=== PATIENT | male | born 1935 | race Caucasian/White ===

== ENCOUNTER 2017-01-30 09:32 | Emergency (ER) | payer MEDICARE, OTHER ==
--- NOTE | 2017-01-30 09:52 | EDM.PDOC ---
ED HPI GENERAL MEDICAL PROBLEM - General Chief Complaint: Chest Pain Stated Complaint: CHEST PAINS Time Seen by Provider: 01/30/17 09:45 Source of Information: Reports: Patient, Old Records History Limitations: Reports: No Limitations - History of Present Illness INITIAL COMMENTS - FREE TEXT/NARRATIVE: 81 yo male here with intermittent chest pain/pressure. Had been having the abdominal/chest pressure for a few days, now he would call it more pain this morning. Is actually asymptomatic now. Has not missed any of his meds. Has known CAD. BP usually runs 120-130 systolic. Has some current constipation. Onset: Gradual Onset Date: 01/30/17 Duration: Hour(s):, Intermittent, Waxing/Waning Location: Reports: Chest Quality: Reports: Pressure Severity: Moderate Improves with: Reports: None Worsens with: Reports: None, Other (Patient does not correlate the chest pain with activity.) Context: Reports: Other (Has known CAD) Associated Symptoms: Reports: Other (constipation). Denies: Diaphoresis, Fever/ Chills, Nausea/Vomiting, Shortness of Breath Treatments [employer]GER: Reports: Other (see below) (Took his usual meds only) - Related Data Allergies Allergy/AdvReac Type Severity Reaction Status Date / Time clopidogrel [From Plavix] Allergy Rash Verified 01/30/17 09:41 Home Meds: Home Meds Alpha Lipoic Acid 200 mg PO DAILY 07/31/14 [History] Ascorbic Acid [Vitamin C] 1,000 mg PO DAILY 07/31/14 [History] Aspirin [Children's Aspirin] 81 mg PO DAILY 07/31/14 [History] Chlorpheniramine Maleate 4 mg PO BID 07/31/14 [History] Clopidogrel [Plavix] 75 mg PO DAILY 07/31/14 [History] Echinacea Purpurea Extract [Echinacea] 125 mg PO DAILY 07/31/14 [History] Furosemide 20 mg PO DAILY 07/31/14 [History] Gluc 2KCl/Chondr/Shannan Hy/Hy Ac [Glucosamine & Chondroitin Cap] 2 each PO BID 08/10 [History] Hydrocodone/Acetaminophen [Hydrocodon-Acetaminophn 10-325] 1 tab PO Q4H PRN 08/10 [History] Ibuprofen 400 mg PO Q4HR PRN 07/31/14 [History] Losartan/Hydrochlorothiazide [Hyzaar 100-25] 1 tab PO DAILY 07/31/14 [History] Magnesium Oxide 400 mg PO DAILY 07/31/14 [History] Metoprolol Tartrate [Lopressor] 25 mg PO Q12HR 07/31/14 [History] Multivitamin [Multi-Vitamin Daily] 1 each PO DAILY 07/31/14 [History] [place]-3 Fatty Acids [[place]-3] 1,000 mg PO DAILY 07/31/14 [History] Spironolactone [Aldactone] 25 mg PO DAILY 07/31/14 [History] Triamcinolone Acetonide [Triamcinolone Acetonide 0.1% Crm] 15 gm TOP BID [History] Ubiquinol 100 mg PO DAILY 07/31/14 [History] Vitamin E 200 unit PO DAILY 07/31/14 [History] amLODIPine [Norvasc] 5 mg PO DAILY 07/31/14 [History] levOCARNitine [l-Carnitine] 500 mg PO DAILY 07/31/14 [History] Past Medical History HEENT History: Reports: Impaired Vision Cardiovascular History: Reports: Heart Failure, Heart Valve Replacement Other Cardiovascular History: systolic dysfunction Respiratory History: Reports: COPD - Infectious Disease History Infectious Disease History: Reports: Chicken Pox - Past Surgical History Cardiovascular Surgical History: Reports: Valve Replacement GI Surgical History: Reports: Colonoscopy Endocrine Surgical History: Reports: Parathyroidectomy Social & Family History - Tobacco Use Smoking Status *Q: Former Smoker Years of Tobacco use: 30 Used Tobacco, but Quit: Yes Month Tobacco Last Used: 2004 Second Hand Smoke Exposure: No - Alcohol Use Days Per Week of Alcohol Use: 0 - Recreational Drug Use Recreational Drug Use: No ED ROS GENERAL - Review of Systems Review Of Systems: See Below Constitutional: Reports: No Symptoms HEENT: Reports: No Symptoms Respiratory: Reports: No Symptoms Cardiovascular: Reports: Chest Pain GI/Abdominal: Reports: Constipation, Other (Some abdominal/chest pressure preceded today's chest pain by a couple days.). Denies: Abdominal Pain, Black Stool, Bloody Stool, Diarrhea, Hematemesis, Hematochezia, Nausea, Vomiting : Reports: No Symptoms Musculoskeletal: Reports: No Symptoms Skin: Reports: No Symptoms Neurological: Reports: No Symptoms Psychiatric: Reports: No Symptoms ED EXAM, GENERAL - Physical Exam Exam: See Below Exam Limited By: No Limitations General Appearance: Alert, WD/WN, No Apparent Distress Eye Exam: Bilateral Eye: Normal Inspection, Other (R upper eyelid obstructs vision by covering pupil in that eye.) Ears: Normal External Exam, Normal Canal, Hearing Grossly Normal Ear Exam: Bilateral Ear: Auricle Normal, Canal Normal Nose: Normal Inspection, Normal Mucosa, No Blood Throat/Mouth: Normal Inspection, Normal Lips, Normal Oropharynx, Normal Voice, No Airway Compromise Head: Atraumatic, Normocephalic Neck: Normal Inspection, Supple Respiratory/Chest: No Respiratory Distress, Lungs Clear, Normal Breath Sounds, No Accessory Muscle Use Cardiovascular: Regular Rate, Rhythm, No Edema GI/Abdominal: Normal Bowel Sounds, Soft, Non-Tender, No Distention Back Exam: Normal Inspection. No: CVA Tenderness (R), CVA Tenderness (L) Extremities: Normal Inspection, Normal Range of Motion, Non-Tender, Pedal Edema (Trace both ankles) Neurological: Alert, Oriented, CN II-XII Intact, Normal Cognition, No Motor/ Sensory Deficits Psychiatric: Normal Affect, Normal Mood Skin Exam: Warm, Dry, Intact, Normal Color, No Rash Lymphatic: No Adenopathy EKG INTERPRETATION EKG Date: 01/30/17 Time: 09:40 Rhythm: NSR Rate (Beats/Min): 69 [place]: Normal P-Wave: Present QRS: LBBB ST-T: Depressed (V5-V6) QT: Normal Comparison: Change From Previous EKG EKG Interpretation Comments: ST-T changes V5, V6 new since last EKG. LBBB not new. Course - Vital Signs Last Recorded V/S: Last Vital Signs Temp 36.6 C 01/30/17 09:53 Pulse 81 01/30/17 09:53 Resp 16 01/30/17 09:53 BP 139/80 01/30/17 09:55 Pulse Ox 97 01/30/17 09:53 - Orders/Labs/Meds Orders: Active Orders 24 hr Category Date Time Status Cardiac Monitoring [RC] .As Directed Care 01/30/17 09:42 Active EKG Documentation Completion [RC] ASDIRECTED Care 01/30/17 09:42 Active Sodium Chloride 0.9% [Saline Flush] Med 01/30/17 10:02 Active 10 ml FLUSH ASDIRECTED PRN Saline Lock Insert [OM.PC] Routine Oth 01/30/17 10:02 Ordered EKG 12 Lead [EK] Routine Ther 01/30/17 09:42 Ordered Medication Orders Sodium Chloride (Saline Flush) 10 ml FLUSH ASDIRECTED PRN PRN Reason: Keep Vein Open Last Admin: 01/30/17 10:17 Dose: 10 ml Labs: Laboratory Tests 01/30/17 01/30/17 Range/Units 10:17 10:17 WBC 4.2 L (4.5-11.0) K/uL RBC 4.31 (4.30-5.90) M/uL Hgb 11.7 L (12.0-15.0) g/dL Hct 36.9 L (40.0-54.0) % MCV 86 (80-98) fL MCH 27 (27-31) pg MCHC 32 (32-36) % Plt Count 192 (150-400) K/uL Sodium 139 L (140-148) mmol/L Potassium 4.1 (3.6-5.2) mmol/L Chloride 103 (100-108) mmol/L Carbon Dioxide 26 (21-32) mmol/L Anion Gap 14.1 H (5.0-14.0) mmol/L BUN 35 H (7-18) mg/dL Creatinine 1.6 H (0.8-1.3) mg/dL Est Cr Clr Drug Dosing 36.75 mL/min Estimated GFR (MDRD) 42 L (>60) Glucose 90 (74-106) mg/dL Calcium 8.3 L (8.5-10.1) mg/dL Troponin I 0.183 H* (0.000-0.056) ng/mL Meds: Medications Generic Name Dose Route Start Last Admin Trade Name Freq PRN Reason Stop Dose Admin Sodium Chloride 10 ml 01/30/17 10:02 01/30/17 10:17 Saline Flush FLUSH 10 ml ASDIRECTED PRN Administration Keep Vein Open Discontinued Medications Generic Name Dose Route Start Last Admin Trade Name Freq PRN Reason Stop Dose Admin Polyethylene Glycol 17 gm 01/30/17 10:01 01/30/17 10:16 Miralax PO 01/30/17 10:02 17 gm ONETIME ONE Administration Departure - Departure Time of Disposition: 12:00 Disposition: DC/Tfer to Acute Hospital 02 Reason for Transfer *Q: Other Condition: Fair Clinical Impression: Non-ST elevated myocardial infarction Referrals: Rachid Macias MD [Primary Care Provider] - Forms: ED Department Discharge - My Orders Last 24 Hours: My Active Orders 01/30/17 09:42 Cardiac Monitoring [RC] .As Directed EKG Documentation Completion [RC] ASDIRECTED EKG 12 Lead [EK] Routine 01/30/17 10:02 Sodium Chloride 0.9% [Saline Flush] 10 ml FLUSH ASDIRECTED PRN Saline Lock Insert [OM.PC] Routine - Assessment/Plan Last 24 Hours: My Active Orders 01/30/17 09:42 Cardiac Monitoring [RC] .As Directed EKG Documentation Completion [RC] ASDIRECTED EKG 12 Lead [EK] Routine 01/30/17 10:02 Sodium Chloride 0.9% [Saline Flush] 10 ml FLUSH ASDIRECTED PRN Saline Lock Insert [OM.PC] Routine
[2017-01-30 09:55] VITALS: BP 139/80
[2017-01-30] MEDS ORDERED: Polyethylene Glycol 3350 Powder 17 GM Packet PO ONE (10:01)
[2017-01-30] MEDS ORDERED: Sodium Chloride 0.9% 10 ML Syringe FLUSH PRN (10:02)
[2017-01-30] MEDS ORDERED: Heparin Sodium 5,000 Units/ML Vial IVPUSH ONE (10:54)
[2017-01-30] MEDS ORDERED: Heparin Sodium/D5W 25,000 UNITS/500 ML BAG IV SCH (11:00)
== END 2017-01-30 12:16 ==
LOC: JP.ED 09:34
DX: I21.4 Non-ST elevation (NSTEMI) myocardial infarction (principal); I50.9 Heart failure, unspecified; J44.9 Chronic obstructive pulmonary disease, unspecified; Z95.2 Presence of prosthetic heart valve; Z87.891 Personal history of nicotine dependence; Z79.82 Long term (current) use of aspirin; Z79.899 Other long term (current) drug therapy; Z88.8 Allergy status to other drugs, medicaments and biological substances
CPT/HCPCS: 36415; 80048; 84484; 85027; 93005; 96374; 99285; A9270; J1644; J7050; 93010; 99284

== ENCOUNTER 2018-07-04 08:40 | Inpatient (IN) | payer MEDICARE, OTHER ==
--- NOTE | 2018-07-04 09:38 | EDM.PDOC ---
ED HPI GENERAL MEDICAL PROBLEM - General Chief Complaint: Genitourinary Problem Stated Complaint: blood in urine Time Seen by Provider: 07/04/18 09:29 Source of Information: Reports: Patient History Limitations: Reports: No Limitations - History of Present Illness INITIAL COMMENTS - FREE TEXT/NARRATIVE: pt self caths twice daily because of urinary retention. His cathed him last nite and there was a fair amount of blood. She is very worried at this point. Onset: Other ( startesd last nite. ) Duration: Hour(s): Location: Reports: Other ( blood in the urine. ) Associated Symptoms: Reports: No Other Symptoms - Related Data Allergies Allergy/AdvReac Type Severity Reaction Status Date / Time clopidogrel [From Plavix] Allergy Rash Verified 01/30/17 09:41 Home Meds: Home Meds Alpha Lipoic Acid 200 mg PO DAILY 07/31/14 [History] Ascorbic Acid [Vitamin C] 1,000 mg PO DAILY 07/31/14 [History] Aspirin [Children's Aspirin] 81 mg PO DAILY 07/31/14 [History] Chlorpheniramine Maleate 4 mg PO BID 07/31/14 [History] Clopidogrel [Plavix] 75 mg PO DAILY 07/31/14 [History] Echinacea Purpurea Extract [Echinacea] 125 mg PO DAILY 07/31/14 [History] Furosemide 20 mg PO DAILY 07/31/14 [History] Gluc 2KCl/Chondr/Shannan Hy/Hy Ac [Glucosamine & Chondroitin Cap] 2 each PO BID 08/10 [History] Hydrocodone/Acetaminophen [Hydrocodon-Acetaminophn 10-325] 1 tab PO Q4H PRN 08/10 [History] Ibuprofen 400 mg PO Q4HR PRN 07/31/14 [History] Losartan/Hydrochlorothiazide [Hyzaar 100-25] 1 tab PO DAILY 07/31/14 [History] Magnesium Oxide 400 mg PO DAILY 07/31/14 [History] Metoprolol Tartrate [Lopressor] 25 mg PO Q12HR 07/31/14 [History] Multivitamin [Multi-Vitamin Daily] 1 each PO DAILY 07/31/14 [History] [place]-3 Fatty Acids [[place]-3] 1,000 mg PO DAILY 07/31/14 [History] Spironolactone [Aldactone] 25 mg PO DAILY 07/31/14 [History] Triamcinolone Acetonide [Triamcinolone Acetonide 0.1% Crm] 15 gm TOP BID [History] Ubiquinol 100 mg PO DAILY 07/31/14 [History] Vitamin E 200 unit PO DAILY 07/31/14 [History] amLODIPine [Norvasc] 5 mg PO DAILY 07/31/14 [History] levOCARNitine [l-Carnitine] 500 mg PO DAILY 07/31/14 [History] Past Medical History HEENT History: Reports: Impaired Vision Cardiovascular History: Reports: Heart Failure, Heart Valve Replacement Other Cardiovascular History: systolic dysfunction Respiratory History: Reports: COPD Gastrointestinal History: Reports: Diverticulosis Genitourinary History: Reports: Other (See Below) Other Genitourinary History: 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 Musculoskeletal History: Reports: Other (See Below) Other Musculoskeletal History: spinal stenosis - Infectious Disease History Infectious Disease History: Reports: Chicken Pox, Measles, Mumps - Past Surgical History Cardiovascular Surgical History: Reports: Valve Replacement GI Surgical History: Reports: Colonoscopy Male Surgical History: Reports: Other (See Below) Other Male Surgeries/Procedures: straight cath x 3 Endocrine Surgical History: Reports: Parathyroidectomy Social & Family History - Tobacco Use Smoking Status *Q: Former Smoker Used Tobacco, but Quit: Yes Month/Year Tobacco Last Used: many years - Caffeine Use Caffeine Use: Reports: Coffee, Soda - Recreational Drug Use Recreational Drug Use: No ED ROS GENERAL - Review of Systems Review Of Systems: See Below Constitutional: Reports: No Symptoms HEENT: Reports: No Symptoms Respiratory: Reports: No Symptoms Cardiovascular: Reports: No Symptoms Endocrine: Reports: No Symptoms GI/Abdominal: Reports: No Symptoms : Reports: Other (pt is having blood coming from the penis after being self cathed last nite. He is not voiding frquently and in only very small amounta. ) Musculoskeletal: Reports: No Symptoms ED EXAM, RENAL/ - Physical Exam Exam: See Below Text/Narrative:: pt arrived with a history of some blood coming from the penis after being self cathed last nite. He was bladder scanned and he had about [id number] cc of fluid in his bladder. Exam Limited By: No Limitations General Appearance: Alert, Anxious, Mild Distress Ears: Normal TMs Nose: Normal Inspection Throat/Mouth: Normal Inspection Head: Atraumatic Neck: Normal Inspection Respiratory/Chest: No Respiratory Distress Cardiovascular: Regular Rate, Rhythm GI/Abdominal: Other ( bladder feels very distended. ) (Male) Exam: Other (pt does have some bright red blood coming from the penis. ) Rectal (Males) Exam: Deferred Back Exam: Normal Inspection Extremities: Normal Inspection Neurological: Alert, Oriented, Normal Cognition Course - Vital Signs Last Recorded V/S: Last Vital Signs Temp 35.8 C 07/04/18 09:10 Pulse 75 07/04/18 09:10 Resp 12 07/04/18 09:10 BP 148/68 H 07/04/18 09:10 Pulse Ox 96 07/04/18 09:10 - Orders/Labs/Meds Orders: Active Orders 24 hr Category Date Time Status Bladder Scan [RC] ASDIRECTED Care 07/04/18 09:14 Active Labs: Laboratory Tests 07/04/18 07/04/18 07/04/18 Range/Units 08:45 10:00 10:00 WBC (4.5-11.0) K/uL RBC (4.30-5.90) M/uL Hgb (12.0-15.0) g/dL Hct (40.0-54.0) % MCV (80-98) fL MCH (27-31) pg MCHC (32-36) % Plt Count (150-400) K/uL Neut % (Auto) (36-66) % Lymph % (Auto) (24-44) % [place] % (Auto) (2-6) % Eos % (Auto) (2-4) % Baso % (Auto) (0-1) % PT 11.8 (9.5-12.0) sec INR 1.08 (0.80-1.20) APTT 28.8 (27.0-36.0) sec Sodium (140-148) mmol/L Potassium (3.6-5.2) mmol/L Chloride (100-108) mmol/L Carbon Dioxide (21-32) mmol/L Anion Gap (5.0-14.0) mmol/L BUN (7-18) mg/dL Creatinine (0.8-1.3) mg/dL Est Cr Clr Drug Dosing mL/min Estimated GFR (MDRD) (>60) Glucose (74-106) mg/dL Calcium (8.5-10.1) mg/dL Total Bilirubin (0.2-1.0) mg/dL AST (15-37) U/L ALT (12-78) U/L Alkaline Phosphatase (46-116) U/L Total Protein (6.4-8.2) g/dL Albumin (3.4-5.0) g/dL Globulin (2.3-3.5) g/dL Albumin/Globulin Ratio (1.2-2.2) Urine Color Red Urine Appearance Slightly cloudy Urine pH 6.0 (4.5-8.0) Ur Specific [place] 1.010 (1.008-1.030) Urine Protein Negative (NEGATIVE) mg/dL Urine Glucose (UA) Normal (NEGATIVE) mg/dL Urine Ketones Negative (NEGATIVE) mg/dL Urine Occult Blood Large (NEGATIVE) Urine Nitrite Negative (NEGAITVE) Urine Bilirubin Negative (NEGATIVE) Urine Urobilinogen Normal (NORMAL) mg/dL Ur Leukocyte Esterase Negative (NEGATIVE) Urine RBC Packed H (0-5) Urine WBC Not seen (0-5) Ur Epithelial Cells Not seen Amorphous Sediment Few Urine Bacteria Not seen Urine Mucus Not seen 07/04/18 07/04/18 Range/Units 10:26 10:26 WBC 4.1 L (4.5-11.0) K/uL RBC 3.52 L (4.30-5.90) M/uL Hgb 10.4 L (12.0-15.0) g/dL Hct 31.8 L (40.0-54.0) % MCV 90 (80-98) fL MCH 30 (27-31) pg MCHC 33 (32-36) % Plt Count 204 (150-400) K/uL Neut % (Auto) 54 (36-66) % Lymph % (Auto) 22 L (24-44) % [place] % (Auto) 16 H (2-6) % Eos % (Auto) 6 H (2-4) % Baso % (Auto) 2 H (0-1) % PT (9.5-12.0) sec INR (0.80-1.20) APTT (27.0-36.0) sec Sodium 135 L (140-148) mmol/L Potassium 4.6 (3.6-5.2) mmol/L Chloride 101 (100-108) mmol/L Carbon Dioxide 26 (21-32) mmol/L Anion Gap 12.6 (5.0-14.0) mmol/L BUN 36 H (7-18) mg/dL Creatinine 1.5 H (0.8-1.3) mg/dL Est Cr Clr Drug Dosing 37.85 mL/min Estimated GFR (MDRD) 45 L (>60) Glucose 92 (74-106) mg/dL Calcium 8.1 L (8.5-10.1) mg/dL Total Bilirubin 0.4 (0.2-1.0) mg/dL AST 24 (15-37) U/L ALT 21 (12-78) U/L Alkaline Phosphatase 64 (46-116) U/L Total Protein 6.6 (6.4-8.2) g/dL Albumin 3.2 L (3.4-5.0) g/dL Globulin 3.4 (2.3-3.5) g/dL Albumin/Globulin Ratio 0.9 L (1.2-2.2) Urine Color Urine Appearance Urine pH (4.5-8.0) Ur Specific [place] (1.008-1.030) Urine Protein (NEGATIVE) mg/dL Urine Glucose (UA) (NEGATIVE) mg/dL Urine Ketones (NEGATIVE) mg/dL Urine Occult Blood (NEGATIVE) Urine Nitrite (NEGAITVE) Urine Bilirubin (NEGATIVE) Urine Urobilinogen (NORMAL) mg/dL Ur Leukocyte Esterase (NEGATIVE) Urine RBC (0-5) Urine WBC (0-5) Ur Epithelial Cells Amorphous Sediment Urine Bacteria Urine Mucus Meds: Medications Discontinued Medications Generic Name Dose Route Start Last Admin Trade Name Ed PRN Reason Stop Dose Admin Lidocaine HCl 10 ml 07/04/18 09:43 07/04/18 11:13 Xylocaine 2% Jelly MUCMEM 07/04/18 09:44 Not Given ONETIME ONE - Re-Assessments/Exams Free Text/Narrative Re-Assessment/Exam: 07/04/18 12:24 pt had 1 bag of irrigation and the large clots have stopped and the urine is flowing normally. He does not have alot of bacteria in the urine. Departure - Departure Time of Disposition: 12:26 Disposition: Admitted As Inpatient 65 Condition: Fair Clinical Impression: Hematuria, Urinary retention - Discharge Information Referrals: PCP,None [Primary Care Provider] - Forms: ED Department Discharge Care Plan Goals: admit to Dr Matthew. - My Orders Last 24 Hours: My Active Orders 07/04/18 09:14 Bladder Scan [RC] ASDIRECTED - Assessment/Plan Last 24 Hours: My Active Orders 07/04/18 09:14 Bladder Scan [RC] ASDIRECTED
[2018-07-04] MEDS ORDERED: Lidocaine 2% Jelly 10 ML Urojet MUCMEM ONE (09:43)
--- NOTE | 2018-07-04 13:10 | PCM.HP ---
H&P History of Present Illness - General Date of Service: 07/04/18 Admit Problem/Dx: Admission Diagnosis/Problem Admission Diagnosis/Problem Hematuria Source of Information: Patient, Family, Provider History Limitations: Reports: No Limitations - History of Present Illness Initial Comments - Free Text/Narative: Aiden presented to the ER with hematuria. His performed a straight catheterization as usual last night. She did note some difficulty inserting the catheter which was unusual and she twisted it slightly. She had a return of approximately 100 mL of tyler-colored fluid. They went to bed as usual but he woke up about every 2 hours for the rest tonight with urinary urgency. He was only able to pass a small quantity of urine which appeared very red in color. He mentioned that to his this morning and she brought him in for evaluation. He continues to have some urinary urgency but has not been able to avoid his usual quantity. He does straight catheter twice daily because of a neurogenic bladder but is able to pass urine on his own normally. He has not had any fevers. He does not have any abdominal pain. Does not have any pain with urination. In the emergency room and irrigating catheter was placed and multiple clots were removed with the bladder irrigation. Irrigation was stopped and the urine became very red in color again told bladder irrigation will be resumed. He will be admitted for further management of hematuria probably secondary to a localized injury from the straight catheterization. - Related Data Allergies/Adverse Reactions: Allergies Allergy/AdvReac Type Severity Reaction Status Date / Time clopidogrel [From Plavix] Allergy Rash Verified 01/30/17 09:41 Home Medications: Home Meds Alpha Lipoic Acid 200 mg PO DAILY 07/31/14 [History] Ascorbic Acid [Vitamin C] 1,000 mg PO DAILY 07/31/14 [History] Aspirin [Children's Aspirin] 81 mg PO DAILY 07/31/14 [History] Chlorpheniramine Maleate 4 mg PO BID 07/31/14 [History] Clopidogrel [Plavix] 75 mg PO DAILY 07/31/14 [History] Echinacea Purpurea Extract [Echinacea] 125 mg PO DAILY 07/31/14 [History] Furosemide 20 mg PO DAILY 07/31/14 [History] Gluc 2KCl/Chondr/Shannan Hy/Hy Ac [Glucosamine & Chondroitin Cap] 2 each PO BID 08/10 [History] Hydrocodone/Acetaminophen [Hydrocodon-Acetaminophn 10-325] 1 tab PO Q4H PRN 08/10 [History] Ibuprofen 400 mg PO Q4HR PRN 07/31/14 [History] Losartan/Hydrochlorothiazide [Hyzaar 100-25] 1 tab PO DAILY 07/31/14 [History] Magnesium Oxide 400 mg PO DAILY 07/31/14 [History] Metoprolol Tartrate [Lopressor] 25 mg PO Q12HR 07/31/14 [History] Multivitamin [Multi-Vitamin Daily] 1 each PO DAILY 07/31/14 [History] [place]-3 Fatty Acids [[place]-3] 1,000 mg PO DAILY 07/31/14 [History] Spironolactone [Aldactone] 25 mg PO DAILY 07/31/14 [History] Triamcinolone Acetonide [Triamcinolone Acetonide 0.1% Crm] 15 gm TOP BID [History] Ubiquinol 100 mg PO DAILY 07/31/14 [History] Vitamin E 200 unit PO DAILY 07/31/14 [History] amLODIPine [Norvasc] 5 mg PO DAILY 07/31/14 [History] levOCARNitine [l-Carnitine] 500 mg PO DAILY 07/31/14 [History] Past Medical History HEENT History: Reports: Impaired Vision Cardiovascular History: Reports: Heart Failure, Heart Valve Replacement Other Cardiovascular History: systolic dysfunction Respiratory History: Reports: COPD Gastrointestinal History: Reports: Diverticulosis Genitourinary History: Reports: Other (See Below) Other Genitourinary History: 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 Musculoskeletal History: Reports: Other (See Below) Other Musculoskeletal History: spinal stenosis - Infectious Disease History Infectious Disease History: Reports: Chicken Pox, Measles, Mumps - Past Surgical History Cardiovascular Surgical History: Reports: Valve Replacement GI Surgical History: Reports: Colonoscopy Male Surgical History: Reports: Other (See Below) Other Male Surgeries/Procedures: straight cath x 3 Endocrine Surgical History: Reports: Parathyroidectomy Social & Family History - Family History Cardiac: Reports: [place] (father in his 70's) - Tobacco Use Smoking Status *Q: Former Smoker Used Tobacco, but Quit: Yes Month/Year Tobacco Last Used: many years - Caffeine Use Caffeine Use: Reports: Coffee, Soda - Alcohol Use Alcohol Use History: No - Recreational Drug Use Recreational Drug Use: No H&P Review of Systems - Review of Systems: Review Of Systems: See Below Free Text/Narrative: A complete 12 point review of systems was obtained. Pertinent positives and negatives are noted in the history of present illness. All other systems were reviewed and were negative except as noted. Exam - Exam Exam: See Below - Vital Signs Vital Signs: Last Vital Signs Temp 35.8 C 07/04/18 09:10 Pulse 75 07/04/18 09:10 Resp 12 07/04/18 09:10 BP 148/68 H 07/04/18 09:10 Pulse Ox 96 07/04/18 09:10 Weight: 77.111 kg - Exam Quality Assessment: No: Supplemental Oxygen General: Alert, Oriented, Cooperative. No: Mild Distress HEENT: Conjunctiva Clear, Mucosa Moist & [place]. No: Scleral Icterus Neck: Supple, Trachea Midline. No: Lymphadenopathy Lungs: Clear to Auscultation, Normal Respiratory Effort Cardiovascular: Regular Rate, Regular Rhythm, Systolic Murmur (soft KIM at apex) GI/Abdominal Exam: Normal Bowel Sounds, Soft, Non-Tender, No Distention, No Mass (Male) Exam: Other (hematuria noted in catheter ) Back Exam: Normal Inspection, Full Range of Motion Extremities: No Pedal Edema. No: Increased Warmth Skin: Warm, Dry Neuro Extensive - Mental Status: Alert, Oriented x3, Nl Response to Commands Neuro Extensive - Motor, Sensory, Reflexes: No: Dysarthria, Abnormal Motor, Tremor Psychiatric: Alert, Normal Affect - Patient Data Lab Results Last 24 hrs: Laboratory Results - last 24 hr 07/04/18 07/04/18 07/04/18 Range/Units 08:45 10:00 10:00 WBC (4.5-11.0) K/uL RBC (4.30-5.90) M/uL Hgb (12.0-15.0) g/dL Hct (40.0-54.0) % MCV (80-98) fL MCH (27-31) pg MCHC (32-36) % Plt Count (150-400) K/uL Neut % (Auto) (36-66) % Lymph % (Auto) (24-44) % [place] % (Auto) (2-6) % Eos % (Auto) (2-4) % Baso % (Auto) (0-1) % PT 11.8 (9.5-12.0) sec INR 1.08 (0.80-1.20) APTT 28.8 (27.0-36.0) sec Sodium (140-148) mmol/L Potassium (3.6-5.2) mmol/L Chloride (100-108) mmol/L Carbon Dioxide (21-32) mmol/L Anion Gap (5.0-14.0) mmol/L BUN (7-18) mg/dL Creatinine (0.8-1.3) mg/dL Est Cr Clr Drug Dosing mL/min Estimated GFR (MDRD) (>60) Glucose (74-106) mg/dL Calcium (8.5-10.1) mg/dL Total Bilirubin (0.2-1.0) mg/dL AST (15-37) U/L ALT (12-78) U/L Alkaline Phosphatase (46-116) U/L Total Protein (6.4-8.2) g/dL Albumin (3.4-5.0) g/dL Globulin (2.3-3.5) g/dL Albumin/Globulin Ratio (1.2-2.2) Urine Color Red Urine Appearance Slightly cloudy Urine pH 6.0 (4.5-8.0) Ur Specific [place] 1.010 (1.008-1.030) Urine Protein Negative (NEGATIVE) mg/dL Urine Glucose (UA) Normal (NEGATIVE) mg/dL Urine Ketones Negative (NEGATIVE) mg/dL Urine Occult Blood Large (NEGATIVE) Urine Nitrite Negative (NEGAITVE) Urine Bilirubin Negative (NEGATIVE) Urine Urobilinogen Normal (NORMAL) mg/dL Ur Leukocyte Esterase Negative (NEGATIVE) Urine RBC Packed H (0-5) Urine WBC Not seen (0-5) Ur Epithelial Cells Not seen Amorphous Sediment Few Urine Bacteria Not seen Urine Mucus Not seen 07/04/18 07/04/18 Range/Units 10:26 10:26 WBC 4.1 L (4.5-11.0) K/uL RBC 3.52 L (4.30-5.90) M/uL Hgb 10.4 L (12.0-15.0) g/dL Hct 31.8 L (40.0-54.0) % MCV 90 (80-98) fL MCH 30 (27-31) pg MCHC 33 (32-36) % Plt Count 204 (150-400) K/uL Neut % (Auto) 54 (36-66) % Lymph % (Auto) 22 L (24-44) % [place] % (Auto) 16 H (2-6) % Eos % (Auto) 6 H (2-4) % Baso % (Auto) 2 H (0-1) % PT (9.5-12.0) sec INR (0.80-1.20) APTT (27.0-36.0) sec Sodium 135 L (140-148) mmol/L Potassium 4.6 (3.6-5.2) mmol/L Chloride 101 (100-108) mmol/L Carbon Dioxide 26 (21-32) mmol/L Anion Gap 12.6 (5.0-14.0) mmol/L BUN 36 H (7-18) mg/dL Creatinine 1.5 H (0.8-1.3) mg/dL Est Cr Clr Drug Dosing 37.85 mL/min Estimated GFR (MDRD) 45 L (>60) Glucose 92 (74-106) mg/dL Calcium 8.1 L (8.5-10.1) mg/dL Total Bilirubin 0.4 (0.2-1.0) mg/dL AST 24 (15-37) U/L ALT 21 (12-78) U/L Alkaline Phosphatase 64 (46-116) U/L Total Protein 6.6 (6.4-8.2) g/dL Albumin 3.2 L (3.4-5.0) g/dL Globulin 3.4 (2.3-3.5) g/dL Albumin/Globulin Ratio 0.9 L (1.2-2.2) Urine Color Urine Appearance Urine pH (4.5-8.0) Ur Specific [place] (1.008-1.030) Urine Protein (NEGATIVE) mg/dL Urine Glucose (UA) (NEGATIVE) mg/dL Urine Ketones (NEGATIVE) mg/dL Urine Occult Blood (NEGATIVE) Urine Nitrite (NEGAITVE) Urine Bilirubin (NEGATIVE) Urine Urobilinogen (NORMAL) mg/dL Ur Leukocyte Esterase (NEGATIVE) Urine RBC (0-5) Urine WBC (0-5) Ur Epithelial Cells Amorphous Sediment Urine Bacteria Urine Mucus Result Diagrams: 07/04/18 10:26 07/04/18 10:26 *Q Meaningful Use (ADM) - VTE *Q VTE Pharmacological Contraindications *Q: Active Hemorrhage - VTE Risk Assess *Q Each Risk Factor Represents 1 Point: Congestive heart failure (CHF) Total Score 1 Point Risk Factors: 1 Each Risk Factor Represents 2 Points: None Total Score 2 Point Risk Factors: 0 Each Risk Factor Represents 3 Points: Age 75 Years or Greater Total Score 3 Point Risk Factors: 3 Each Risk Factor Represents 5 Points: None Total Score 5 Point Risk Factors: 0 Venous Thromboembolism Risk Factor Score *Q: 4 - Problem List (1) Hematuria SNOMED Code(s): 82129341 ICD Code: R31.9 - HEMATURIA, UNSPECIFIED Status: Acute Current Visit: Yes Qualifiers: Hematuria type: gross Qualified Code(s): R31.0 - Gross hematuria (2) Neurogenic bladder SNOMED Code(s): 994137256 ICD Code: N31.9 - NEUROMUSCULAR DYSFUNCTION OF BLADDER, UNSPECIFIED Status : Chronic Current Visit: Yes (3) BPH w urinary obs/LUTS SNOMED Code(s): 962993690 ICD Code: N40.1 - BENIGN PROSTATIC HYPERPLASIA WITH LOWER URINARY TRACT SYMP ; N13.8 - OTHER OBSTRUCTIVE AND REFLUX UROPATHY Status: Chronic Current Visit: Yes (4) CKD (chronic kidney disease), stage III SNOMED Code(s): 209714015 ICD Code: N18.3 - CHRONIC KIDNEY DISEASE, STAGE 3 (MODERATE) Status: Chronic Current Visit: Yes (5) CAD (coronary artery disease) SNOMED Code(s): 73149731 ICD Code: I25.10 - ATHSCL HEART DISEASE OF [place] CORONARY ARTERY W/O ANG PCTRS Status: Chronic Current Visit: Yes Qualifiers: Coronary Disease-Associated Artery/Lesion type: [place] artery [place] vs. transplanted heart: [place] heart Associated angina: without angina Qualified Code(s): I25.10 - Atherosclerotic heart disease of [place] coronary artery without angina pectoris Problem List Initiated/Reviewed/Updated: Yes Orders Last 24hrs: Active Orders 24 hr Category Date Time Status Patient Status Manage Transfer [TRANSFER] Routine ADT 07/04/18 13:01 Ordered Bladder Irrigation [RC] CONTINUOUS Care 07/04/18 13:01 Active Bladder Scan [RC] ASDIRECTED Care 07/04/18 09:14 Active CULTURE URINE [RM] Stat Lab 07/04/18 12:28 Received Resuscitation Status Routine Resus Stat 07/04/18 13:02 Ordered Assessment/Plan Comment:: ASSESSMENT AND PLAN - Gross hematuria - hematuria initially noted last night and has persisted. Significant hematuria with clots noted after the irrigating catheter was placed. I suspect there was an injury either in the urethra or prostate during catheterization last night. Fortunately has not on significant anticoagulant medications. Urine dip initially clear up with the bladder irrigation. 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 Normally uses a straight catheter twice per daily. Chronic kidney disease stage III - kidney function stable and at baseline. -Repeat labs in the morning Coronary artery disease - significant coronary history but no symptoms at this time. He has a history of heart failure which is well compensated. He has an ICD in place. -Continue medical management Maintenance issues - - DVT prophylaxis - mechanical with active hemorrhage - GI prophylaxis - not indicated - Nutrition - regular diet - Marcos catheter - three-way irrigating catheter placed in the emergency room with gross hematuria CODE STATUS - DNR/DNI Admission justification - This patient will be admitted for inpatient services and is medically appropriate meeting medical necessity for inpatient admission as outlined in my documentation. I reasonably expect the patient will require inpatient services that span a period time over 2 midnights. I reasonably expect this patient to be discharged or transferred within 96 hours [facility]. Disposition - I would anticipate discharge to home after the hospital stay Primary care physician - Dr Janet Matthew M.D.
[2018-07-04] MEDS ORDERED: Magnesium Hydroxide 400 MG/5 ML Susp 30 ML Cup PO PRN (14:51)
[2018-07-04] MEDS ORDERED: Polyethylene Glycol 3350 Powder 17 GM Packet PO PRN (14:51)
[2018-07-04] MEDS ORDERED: Ondansetron 4 MG Tab.DIS PO PRN (14:51)
[2018-07-04] MEDS ORDERED: Acetaminophen 325 MG Tab PO PRN (14:51)
[2018-07-04] MEDS: Carvedilol 12.5 MG Tab PO SCH (18:10)
[2018-07-04] MEDS: Fish Oil/Omega-3 Fatty Acids 1 Gm Cap PO SCH (20:56)
[2018-07-04] MEDS: atorvaSTATin 20 MG Tab PO SCH (20:56)
[2018-07-05] MEDS: Tiotropium Inhaler 18 MCG Inhalation Powder Cap Kit of 5 INH SCH (08:04)
[2018-07-05] MEDS: Carvedilol 12.5 MG Tab PO SCH ×2 (09:07→16:59)
[2018-07-05] MEDS: Aspirin 325 MG Tab.EC PO SCH (09:08)
[2018-07-05] MEDS: Spironolactone 25 MG Tab PO SCH (09:08)
[2018-07-05] MEDS: Polyethylene Glycol 3350 Powder 17 GM Packet PO SCH (09:10)
[2018-07-05] MEDS: Tamsulosin 0.4 MG Cap.ER PO SCH (09:10)
[2018-07-05] MEDS: Finasteride 5 MG Tab PO SCH (09:11)
[2018-07-05] MEDS: Fish Oil/Omega-3 Fatty Acids 1 Gm Cap PO SCH ×2 (09:27→20:19)
--- NOTE | 2018-07-05 09:34 | PCM.PN ---
- General Info Date of Service: 07/05/18 Subjective Update: There were no acute events overnight and the patient slept well. He has ongoing hematuria and continues to require continuous bladder irrigation. The number of clots seems to be decreasing. He does not have any abdominal pain. He has not had any fevers. Hemoglobin is down slightly compared to yesterday. Functional Status: Reports: Pain Controlled, Tolerating Diet - Review of Systems General: Denies: Fever Genitourinary: Reports: Hematuria - Patient Data Vitals - Most Recent: Last Vital Signs Temp 35.8 C 07/05/18 07:18 Pulse 63 07/05/18 09:07 Resp 16 07/05/18 07:18 BP 139/80 07/05/18 09:07 Pulse Ox 94 L 07/05/18 07:18 Weight - Most Recent: 75.115 kg I&O - Last 24 Hours: Intake & Output 07/04/18 07/05/18 07/05/18 22:59 06:59 14:59 Intake Total 1980 1500 1500 Output Total 1650 3450 Balance 330 -1950 1500 Lab Results Last 24 Hours: Laboratory Results - last 24 hr 07/04/18 07/04/18 07/04/18 Range/Units 08:45 10:00 10:00 WBC (4.5-11.0) K/uL RBC (4.30-5.90) M/uL Hgb (12.0-15.0) g/dL Hct (40.0-54.0) % MCV (80-98) fL MCH (27-31) pg MCHC (32-36) % Plt Count (150-400) K/uL Neut % (Auto) (36-66) % Lymph % (Auto) (24-44) % [place] % (Auto) (2-6) % Eos % (Auto) (2-4) % Baso % (Auto) (0-1) % PT 11.8 (9.5-12.0) sec INR 1.08 (0.80-1.20) APTT 28.8 (27.0-36.0) sec Sodium (140-148) mmol/L Potassium (3.6-5.2) mmol/L Chloride (100-108) mmol/L Carbon Dioxide (21-32) mmol/L Anion Gap (5.0-14.0) mmol/L BUN (7-18) mg/dL Creatinine (0.8-1.3) mg/dL Est Cr Clr Drug Dosing mL/min Estimated GFR (MDRD) (>60) Glucose (74-106) mg/dL Calcium (8.5-10.1) mg/dL Total Bilirubin (0.2-1.0) mg/dL AST (15-37) U/L ALT (12-78) U/L Alkaline Phosphatase (46-116) U/L Total Protein (6.4-8.2) g/dL Albumin (3.4-5.0) g/dL Globulin (2.3-3.5) g/dL Albumin/Globulin Ratio (1.2-2.2) Urine Color Red Urine Appearance Slightly cloudy Urine pH 6.0 (4.5-8.0) Ur Specific [place] 1.010 (1.008-1.030) Urine Protein Negative (NEGATIVE) mg/dL Urine Glucose (UA) Normal (NEGATIVE) mg/dL Urine Ketones Negative (NEGATIVE) mg/dL Urine Occult Blood Large (NEGATIVE) Urine Nitrite Negative (NEGAITVE) Urine Bilirubin Negative (NEGATIVE) Urine Urobilinogen Normal (NORMAL) mg/dL Ur Leukocyte Esterase Negative (NEGATIVE) Urine RBC Packed H (0-5) Urine WBC Not seen (0-5) Ur Epithelial Cells Not seen Amorphous Sediment Few Urine Bacteria Not seen Urine Mucus Not seen 07/04/18 07/04/18 07/05/18 Range/Units 10:26 10:26 05:00 WBC 4.1 L 5.0 (4.5-11.0) K/uL RBC 3.52 L 3.22 L (4.30-5.90) M/uL Hgb 10.4 L 9.5 L (12.0-15.0) g/dL Hct 31.8 L 29.3 L (40.0-54.0) % MCV 90 91 (80-98) fL MCH 30 30 (27-31) pg MCHC 33 32 (32-36) % Plt Count 204 197 (150-400) K/uL Neut % (Auto) 54 (36-66) % Lymph % (Auto) 22 L (24-44) % [place] % (Auto) 16 H (2-6) % Eos % (Auto) 6 H (2-4) % Baso % (Auto) 2 H (0-1) % PT (9.5-12.0) sec INR (0.80-1.20) APTT (27.0-36.0) sec Sodium 135 L (140-148) mmol/L Potassium 4.6 (3.6-5.2) mmol/L Chloride 101 (100-108) mmol/L Carbon Dioxide 26 (21-32) mmol/L Anion Gap 12.6 (5.0-14.0) mmol/L BUN 36 H (7-18) mg/dL Creatinine 1.5 H (0.8-1.3) mg/dL Est Cr Clr Drug Dosing 37.85 mL/min Estimated GFR (MDRD) 45 L (>60) Glucose 92 (74-106) mg/dL Calcium 8.1 L (8.5-10.1) mg/dL Total Bilirubin 0.4 (0.2-1.0) mg/dL AST 24 (15-37) U/L ALT 21 (12-78) U/L Alkaline Phosphatase 64 (46-116) U/L Total Protein 6.6 (6.4-8.2) g/dL Albumin 3.2 L (3.4-5.0) g/dL Globulin 3.4 (2.3-3.5) g/dL Albumin/Globulin Ratio 0.9 L (1.2-2.2) Urine Color Urine Appearance Urine pH (4.5-8.0) Ur Specific [place] (1.008-1.030) Urine Protein (NEGATIVE) mg/dL Urine Glucose (UA) (NEGATIVE) mg/dL Urine Ketones (NEGATIVE) mg/dL Urine Occult Blood (NEGATIVE) Urine Nitrite (NEGAITVE) Urine Bilirubin (NEGATIVE) Urine Urobilinogen (NORMAL) mg/dL Ur Leukocyte Esterase (NEGATIVE) Urine RBC (0-5) Urine WBC (0-5) Ur Epithelial Cells Amorphous Sediment Urine Bacteria Urine Mucus 07/05/18 Range/Units 05:00 WBC (4.5-11.0) K/uL RBC (4.30-5.90) M/uL Hgb (12.0-15.0) g/dL Hct (40.0-54.0) % MCV (80-98) fL MCH (27-31) pg MCHC (32-36) % Plt Count (150-400) K/uL Neut % (Auto) (36-66) % Lymph % (Auto) (24-44) % [place] % (Auto) (2-6) % Eos % (Auto) (2-4) % Baso % (Auto) (0-1) % PT (9.5-12.0) sec INR (0.80-1.20) APTT (27.0-36.0) sec Sodium 138 L (140-148) mmol/L Potassium 4.3 (3.6-5.2) mmol/L Chloride 104 (100-108) mmol/L Carbon Dioxide 26 (21-32) mmol/L Anion Gap 12.3 (5.0-14.0) mmol/L BUN 33 H (7-18) mg/dL Creatinine 1.4 H (0.8-1.3) mg/dL Est Cr Clr Drug Dosing 40.56 mL/min Estimated GFR (MDRD) 48 L (>60) Glucose 85 (74-106) mg/dL Calcium 7.9 L (8.5-10.1) mg/dL Total Bilirubin (0.2-1.0) mg/dL AST (15-37) U/L ALT (12-78) U/L Alkaline Phosphatase (46-116) U/L Total Protein (6.4-8.2) g/dL Albumin (3.4-5.0) g/dL Globulin (2.3-3.5) g/dL Albumin/Globulin Ratio (1.2-2.2) Urine Color Urine Appearance Urine pH (4.5-8.0) Ur Specific [place] (1.008-1.030) Urine Protein (NEGATIVE) mg/dL Urine Glucose (UA) (NEGATIVE) mg/dL Urine Ketones (NEGATIVE) mg/dL Urine Occult Blood (NEGATIVE) Urine Nitrite (NEGAITVE) Urine Bilirubin (NEGATIVE) Urine Urobilinogen (NORMAL) mg/dL Ur Leukocyte Esterase (NEGATIVE) Urine RBC (0-5) Urine WBC (0-5) Ur Epithelial Cells Amorphous Sediment Urine Bacteria Urine Mucus Fei Results Last 24 Hours: Microbiology 07/04/18 12:28 Urine Culture - Preliminary Urine, Bladder NO GROWTH AFTER 1 DAY Med Orders - Current: Current Medications Acetaminophen (Tylenol) 650 mg PO Q4H PRN PRN Reason: Pain (Mild 1-3)/fever Aspirin (Ecotrin) 325 mg PO DAILY [facility] Last Admin: 07/05/18 09:08 Dose: 325 mg Atorvastatin Calcium (Lipitor) 20 mg PO BEDTIME [facility] Last Admin: 07/04/18 20:56 Dose: 20 mg Carvedilol (Coreg) 12.5 mg PO BIDMEALS [facility] Last Admin: 07/05/18 09:07 Dose: 12.5 mg Finasteride (Proscar) 5 mg PO DAILY [facility] Last Admin: 07/05/18 09:11 Dose: 5 mg Fish Oil (Fish Oil) 1 gm PO BID [facility] Last Admin: 07/05/18 09:27 Dose: 1 gm Magnesium Hydroxide (Milk Of Magnesia) 30 ml PO Q12H PRN PRN Reason: Constipation [Glucosamine & (Chondroitin*Pom*) 2 each PO BID [facility] Last Admin: 07/04/18 20:57 Dose: Not Given (Ubiquinol [ Ubiquinol] 100 Mg)* Pom* 100 mg PO DAILY [facility] Ondansetron HCl (Zofran Odt) 4 mg PO Q6H PRN PRN Reason: Nausea able to take PO Polyethylene Glycol (Miralax) 17 gm PO DAILY PRN PRN Reason: Constipation Polyethylene Glycol (Miralax) 17 gm PO DAILY [facility] Last Admin: 07/05/18 09:10 Dose: 17 gm Spironolactone (Aldactone) 25 mg PO DAILY [facility] Last Admin: 07/05/18 09:08 Dose: 25 mg Tamsulosin HCl (Flomax) 0.4 mg PO DAILY [facility] Last Admin: 07/05/18 09:10 Dose: 0.4 mg Tiotropium [place] (Spiriva Handihaler) 18 mcg INH DAILY [facility] Last Admin: 07/05/18 08:04 Dose: 18 mcg Discontinued Medications Lidocaine HCl (Xylocaine 2% Jelly) 10 ml MUCMEM ONETIME ONE Stop: 07/04/18 09:44 Last Admin: 07/04/18 11:13 Dose: Not Given - Exam Quality Assessment: No: Supplemental Oxygen General: Alert, Oriented, Cooperative, No Acute Distress Lungs: Normal Respiratory Effort GI/Abdominal Exam: Soft, No Distention Extremities: No Pedal Edema Skin: Warm, Dry Psy/Mental Status: Alert, Normal Affect - Problem List & Annotations (1) Hematuria SNOMED Code(s): 09755962 Code(s): R31.9 - HEMATURIA, UNSPECIFIED Status: Acute Current Visit: Yes Qualifiers: Hematuria type: gross Qualified Code(s): R31.0 - Gross hematuria (2) Neurogenic bladder SNOMED Code(s): 857790521 Code(s): N31.9 - NEUROMUSCULAR DYSFUNCTION OF BLADDER, UNSPECIFIED Status: Chronic Current Visit: Yes (3) BPH w urinary obs/LUTS SNOMED Code(s): 134317245 Code(s): N40.1 - BENIGN PROSTATIC HYPERPLASIA WITH LOWER URINARY TRACT SYMP; N13.8 - OTHER OBSTRUCTIVE AND REFLUX UROPATHY Status: Chronic Current Visit : Yes (4) CKD (chronic kidney disease), stage III SNOMED Code(s): 120586023 Code(s): N18.3 - CHRONIC KIDNEY DISEASE, STAGE 3 (MODERATE) Status: Chronic Current Visit: Yes (5) CAD (coronary artery disease) SNOMED Code(s): 79085922 Code(s): I25.10 - ATHSCL HEART DISEASE OF [place] CORONARY ARTERY W/O ANG PCTRS Status: Chronic Current Visit: Yes Qualifiers: Coronary Disease-Associated Artery/Lesion type: [place] artery [place] vs. transplanted heart: [place] heart Associated angina: without angina Qualified Code(s): I25.10 - Atherosclerotic heart disease of [place] coronary artery without angina pectoris - Problem List Review Problem List Initiated/Reviewed/Updated: Yes - My Orders Last 24 Hours: My Active Orders 07/04/18 13:01 Bladder Irrigation [RC] CONTINUOUS 07/04/18 13:02 Resuscitation Status Routine 07/04/18 14:51 Patient Status [ADT] Routine Antiembolic Devices [RC] .Routine Intake and Output [RC] QSHIFT Notify Provider Vital Signs [RC] ASDIRECTED Oxygen Therapy [RC] PRN VTE/DVT Education [RC] Per Unit Routine Vital Signs [RC] Q4H Acetaminophen [Tylenol] 650 mg PO Q4H PRN Magnesium Hydroxide [Milk of Magnesia] 30 ml PO Q12H PRN Ondansetron [Zofran ODT] 4 mg PO Q6H PRN Polyethylene Glycol 3350 [MiraLAX] 17 gm PO DAILY PRN Antiembolic Hose [OM.PC] Per Unit Routine VTE Pharmacological Contraindications [AST] Per Unit Routine 07/04/18 17:00 Carvedilol [Coreg] 12.5 mg PO BIDMEALS 07/04/18 21:00 Fish Oil/[place]-3 Fatty Acids [Fish Oil] 1 gm PO BID Gluc 2KCl/Chondr/Shannan Hy/Hy Ac [Glucosamine & Chondroitin Cap] 2 each PO BID atorvaSTATin [Lipitor] 20 mg PO BEDTIME 07/04/18 Dinner Regular Diet [DIET] 07/05/18 09:00 Aspirin [Ecotrin] 325 mg PO DAILY Finasteride [Proscar] 5 mg PO DAILY Polyethylene Glycol 3350 [MiraLAX] 17 gm PO DAILY Spironolactone [Aldactone] 25 mg PO DAILY Tamsulosin [Flomax] 0.4 mg PO DAILY Tiotropium [Spiriva HandiHaler] 18 mcg INH DAILY Ubiquinol [Ubiquinol] 100 mg PO DAILY 07/06/18 05:00 BASIC METABOLIC PANEL,BMP [CHEM] Timed CBC W/O DIFF,HEMOGRAM [HEME] Timed (1) - Plan Plan:: ASSESSMENT AND PLAN - Gross hematuria - secondary to suspected urethral or prostate injury. hematuria seems to be lessening some. The quantity of clots seems to be decreasing. He is still dependent on the continuous bladder irrigation. No abdominal pain or fevers. Culture of the urine has been negative so far. 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 Normally uses a straight catheter twice per daily. Chronic kidney disease stage III - kidney function stable and at baseline. -Repeat labs in the morning Coronary artery disease - significant coronary history but no symptoms at this time. Heart failure remains well compensated. He has an ICD in place. -Continue medical management Maintenance issues - - DVT prophylaxis - mechanical with active hemorrhage - GI prophylaxis - not indicated - Nutrition - regular diet - Marcos catheter - three-way irrigating catheter placed in the emergency room with gross hematuria Disposition - I would anticipate discharge to home after the hospital stay Primary care physician - Dr Janet Matthew M.D.
[2018-07-05] MEDS: CHLORPHENIRAMINE 4 MG PO SCH (20:20)
[2018-07-05] MEDS: atorvaSTATin 20 MG Tab PO SCH (20:20)
[2018-07-06] MEDS: Fish Oil/Omega-3 Fatty Acids 1 Gm Cap PO SCH (08:41)
[2018-07-06] MEDS: Carvedilol 12.5 MG Tab PO SCH (08:42)
[2018-07-06] MEDS: Spironolactone 25 MG Tab PO SCH (08:46)
[2018-07-06] MEDS: Finasteride 5 MG Tab PO SCH (08:47)
[2018-07-06] MEDS: Aspirin 325 MG Tab.EC PO SCH (08:47)
[2018-07-06] MEDS: Tamsulosin 0.4 MG Cap.ER PO SCH (08:47)
[2018-07-06] MEDS: Tiotropium Inhaler 18 MCG Inhalation Powder Cap Kit of 5 INH SCH (08:48)
[2018-07-06] MEDS: Polyethylene Glycol 3350 Powder 17 GM Packet PO SCH (08:48)
[2018-07-06] MEDS: CHLORPHENIRAMINE 4 MG PO SCH (08:48)
[2018-07-06 11:10] VITALS: BP 151/81
--- NOTE | 2018-07-06 14:13 | PCM.DCSUM1 ---
Discharge Summary - Hospital Course Brief History: 83-year-old male with history of BPH, neurogenic bladder related to cauda equina syndrome who presented with hematuria after self- catheterization the night before presentation. He was admitted for gross hematuria with clots. Diagnosis: Stroke: No - Discharge Data Discharge Date: 07/06/18 Discharge Disposition: Home, [facility] Condition: Good - Discharge Diagnosis/Problem(s) (1) Hematuria SNOMED Code(s): 33494742 ICD Code: R31.9 - HEMATURIA, UNSPECIFIED Status: Acute Current Visit: Yes Qualifiers: Hematuria type: gross Qualified Code(s): R31.0 - Gross hematuria (2) Neurogenic bladder SNOMED Code(s): 822658354 ICD Code: N31.9 - NEUROMUSCULAR DYSFUNCTION OF BLADDER, UNSPECIFIED Status : Chronic Current Visit: Yes (3) BPH w urinary obs/LUTS SNOMED Code(s): 842283275 ICD Code: N40.1 - BENIGN PROSTATIC HYPERPLASIA WITH LOWER URINARY TRACT SYMP ; N13.8 - OTHER OBSTRUCTIVE AND REFLUX UROPATHY Status: Chronic Current Visit: Yes (4) CKD (chronic kidney disease), stage III SNOMED Code(s): 620111116 ICD Code: N18.3 - CHRONIC KIDNEY DISEASE, STAGE 3 (MODERATE) Status: Chronic Current Visit: Yes (5) CAD (coronary artery disease) SNOMED Code(s): 67070509 ICD Code: I25.10 - ATHSCL HEART DISEASE OF [place] CORONARY ARTERY W/O ANG PCTRS Status: Chronic Current Visit: Yes Qualifiers: Coronary Disease-Associated Artery/Lesion type: [place] artery [place] vs. transplanted heart: [place] heart Associated angina: without angina Qualified Code(s): I25.10 - Atherosclerotic heart disease of [place] coronary artery without angina pectoris - Patient Summary/Data Hospital Course: Aiden presented to the emergency room with hematuria. He had significant clots in his urine as well. Symptoms had started overnight following his usual evening self catheterization. Workup in the emergency room revealed gross hematuria with fair amount of clots. A three-way irrigating catheter was placed and continuous irrigation initiated. The urine did initially clear up but then the hematuria return fairly quickly. Laboratory studies were fairly unremarkable with stable stage III kidney disease and mild anemia which is his baseline. Because of the persistent hematuria he was admitted to the hospital for continuous bladder irrigation. Over the next couple of days the hematuria slowly improved. The clots went away fairly quickly after admission. His urine culture has not grown any bacteria. He has not had any fevers or abdominal pain. On the morning of discharge his hematuria was completely resolved. The catheter was removed. He has successfully voided and passed a clear urine. I believe he is safe for outpatient management at this time. The hematuria was likely related to urethral or prostate injury with the self-catheterization. He is going to avoid self-catheterization until tomorrow night. - Patient Instructions Diet: Regular Diet as Tolerated Activity: As Tolerated Showering/Bathing: May Shower Notify Provider of: Fever, Increased Pain, Nausea and/or Vomiting Other/Special Instructions: 1. You were in the hospital for management of hematuria (blood in your urine). The blood in your urine has resolved with continuous bladder irrigation. The catheter has been removed successfully. I would recommend that you avoid self-catheterization for the next 24 hours. You may resume self-catheterization tomorrow night. 2. Continue your usual home medications as previously prescribed. 3. Seek medical attention if you fever greater than 101, significant abdominal pain or return of hematuria. - Discharge Plan *PRESCRIPTION DRUG MONITORING PROGRAM REVIEWED*: Not Applicable *COPY OF PRESCRIPTION DRUG MONITORING REPORT IN PATIENT [place]: Not Applicable Home Medications: Home Meds Ascorbic Acid [Vitamin C] 1,000 mg PO BID 07/31/14 [History] Gluc 2KCl/Chondr/Shannan Hy/Hy Ac [Glucosamine & Chondroitin Cap] 2 each PO BID 08/10 [History] Multivitamin [Multi-Vitamin Daily] 1 each PO DAILY 07/31/14 [History] Mims-3 Fatty Acids [Mims-3] 1,000 mg PO BID 07/31/14 [History] Spironolactone [Aldactone] 25 mg PO DAILY 07/31/14 [History] Ubiquinol 100 mg PO DAILY 07/31/14 [History] Aspirin [Aspirin EC] 325 mg PO DAILY 07/04/18 [History] Coreg Sr 40 mg PO DAILY 07/04/18 [History] Finasteride 5 mg PO DAILY 07/04/18 [History] Polyethylene Glycol 3350 [MiraLAX] 17 gm PO DAILY 07/04/18 [History] Tamsulosin HCl 0.4 mg PO DAILY 07/04/18 [History] Tiotropium [Spiriva Handihaler] 18 mcg INH DAILY 07/04/18 [History] atorvaSTATin [Lipitor] 20 mg PO BEDTIME 07/04/18 [History] Chlorpheniramine Maleate 4 mg PO BID 07/05/18 [History] Glucosamine/D3/Boswellia Anastasiia [Osteo Bi-Flex Tablet] 2 tab PO BID 07/05/18 [ History] Oxygen Therapy Mode: Room Air Patient Handouts: Hematuria, Adult Referrals: Rachid Macias MD [Ordering Only Provider] - (f/u as scheduled ) - Discharge Summary/Plan Comment DC Time >30 min.: No - Patient Data Vitals - Most Recent: Last Vital Signs Temp 36.4 C 07/06/18 11:05 Pulse 66 07/06/18 11:05 Resp 18 07/06/18 11:05 BP 151/81 H 07/06/18 11:05 Pulse Ox 97 07/06/18 11:05 Weight - Most Recent: 75.115 kg I&O - Last 24 hours: Intake & Output 07/05/18 07/06/18 07/06/18 22:59 06:59 14:59 Intake Total 480 4360 Output Total 3400 1875 Balance 480 -3400 2485 Lab Results - Last 24 hrs: Laboratory Results - last 24 hr 07/06/18 07/06/18 Range/Units 05:27 05:27 WBC 5.1 (4.5-11.0) K/uL RBC 3.27 L (4.30-5.90) M/uL Hgb 9.7 L (12.0-15.0) g/dL Hct 30.2 L (40.0-54.0) % MCV 92 (80-98) fL MCH 30 (27-31) pg MCHC 32 (32-36) % Plt Count 195 (150-400) K/uL Sodium 135 L (140-148) mmol/L Potassium 4.3 (3.6-5.2) mmol/L Chloride 103 (100-108) mmol/L Carbon Dioxide 27 (21-32) mmol/L Anion Gap 9.3 (5.0-14.0) mmol/L BUN 35 H (7-18) mg/dL Creatinine 1.3 (0.8-1.3) mg/dL Est Cr Clr Drug Dosing 43.78 mL/min Estimated GFR (MDRD) 53 L (>60) Glucose 90 (74-106) mg/dL Calcium 7.9 L (8.5-10.1) mg/dL GABRIEL Results - Last 24 hrs: Microbiology 07/04/18 12:28 Urine Culture - Final Urine, Bladder NO GROWTH AFTER 2 DAYS Med Orders - Current: Current Medications Acetaminophen (Tylenol) 650 mg PO Q4H PRN PRN Reason: Pain (Mild 1-3)/fever Aspirin (Ecotrin) 325 mg PO DAILY [facility] [place] Last Admin: 07/06/18 08:47 Dose: 325 mg Atorvastatin Calcium (Lipitor) 20 mg PO BEDTIME [facility] [place] Last Admin: 07/05/18 20:20 Dose: 20 mg Carvedilol (Coreg) 12.5 mg PO BIDMEALS [facility] [place] Last Admin: 07/06/18 08:42 Dose: 12.5 mg Finasteride (Proscar) 5 mg PO DAILY [facility] [place] Last Admin: 07/06/18 08:47 Dose: 5 mg Fish Oil (Fish Oil) 1 gm PO BID [facility] [place] Last Admin: 07/06/18 08:41 Dose: 1 gm Magnesium Hydroxide (Milk Of Magnesia) 30 ml PO Q12H PRN PRN Reason: Constipation [Glucosamine & (Chondroitin*Pom*) 2 each PO BID [facility] [place] Last Admin: 07/06/18 08:44 Dose: 2 each (Ubiquinol [ Ubiquinol] 100 Mg)* Pom* 100 mg PO DAILY [facility] [place] Last Admin: 07/06/18 11:18 Dose: Not Given Ondansetron HCl (Zofran Odt) 4 mg PO Q6H PRN PRN Reason: Nausea able to take PO Chlorpheniramine 4mg (*Pom*) 1 each PO BID [facility] [place] Last Admin: 07/06/18 08:48 Dose: 1 each Polyethylene Glycol (Miralax) 17 gm PO DAILY PRN PRN Reason: Constipation Polyethylene Glycol (Miralax) 17 gm PO DAILY [facility] [place] Last Admin: 07/06/18 08:48 Dose: 17 gm Spironolactone (Aldactone) 25 mg PO DAILY [facility] [place] Last Admin: 07/06/18 08:46 Dose: 25 mg Tamsulosin HCl (Flomax) 0.4 mg PO DAILY [facility] [place] Last Admin: 07/06/18 08:47 Dose: 0.4 mg Tiotropium [place] (Spiriva Handihaler) 18 mcg INH DAILY [facility] [place] Last Admin: 07/06/18 08:48 Dose: 18 mcg Discontinued Medications Lidocaine HCl (Xylocaine 2% Jelly) 10 ml MUCMEM ONETIME ONE Stop: 07/04/18 09:44 Last Admin: 07/04/18 11:13 Dose: Not Given - Exam Quality Assessment: Denies: Supplemental Oxygen General: Reports: Alert, Oriented, Cooperative, No Acute Distress Lungs: Reports: Normal Respiratory Effort Cardiovascular: Reports: Regular Rate, Regular Rhythm GI/Abdominal Exam: No Distention Extremities: No Pedal Edema Psy/Mental Status: Reports: Alert, Normal Affect *Q Meaningful Use (DIS) - VTE *Q VTE Pharmacological Contraindications *Q: Active Hemorrhage
== END 2018-07-06 15:11 | disposition home health service (06) | DRG 696 ==
LOC: JP.ED 08:40 → JP.MS 13:01
PROVIDERS: ADMIT Internal Medicine; ATTEND Internal Medicine
PROC: 3E1K78Z Irrigation of Genitourinary Tract using Irrigating Substance, Via Natural or Artificial Opening (ICD-10-PCS; principal; 2018-07-04)
DX: R31.0 Gross hematuria (principal); N40.1 Benign prostatic hyperplasia with lower urinary tract symptoms; G83.4 Cauda equina syndrome; Z66 Do not resuscitate; X58.XXXA Exposure to other specified factors, initial encounter; Y93.F9 Activity, other caregiving; Y92.009 Unspecified place in unspecified non-institutional (private) residence as the place of occurrence of the external cause; N31.9 Neuromuscular dysfunction of bladder, unspecified; I50.9 Heart failure, unspecified; N18.3 Chronic kidney disease, stage 3 (moderate); J44.9 Chronic obstructive pulmonary disease, unspecified; Z95.2 Presence of prosthetic heart valve; Z87.891 Personal history of nicotine dependence; N13.8 Other obstructive and reflux uropathy; R33.8 Other retention of urine; I25.10 Atherosclerotic heart disease of native coronary artery without angina pectoris; Z95.810 Presence of automatic (implantable) cardiac defibrillator; Z79.82 Long term (current) use of aspirin; Z88.8 Allergy status to other drugs, medicaments and biological substances; D64.9 Anemia, unspecified
CPT/HCPCS: 36415; 51700; 51798; 80048; 80053; 81001; 85025; 85027; 85610; 85730; 87086; 94640; 99284; A9270-GY

== ENCOUNTER 2018-09-02 10:37 | Emergency (ER) | payer MEDICARE, OTHER ==
[2018-09-02] MEDS ORDERED: Sodium Chloride 0.9% 10 ML Syringe FLUSH PRN (11:39)
[2018-09-02] MEDS ORDERED: Lidocaine 2% Jelly 10 ML Urojet MUCMEM ONE (11:51)
--- NOTE | 2018-09-02 11:51 | EDM.PDOC ---
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 at bedside and helpful) - History of Present Illness INITIAL COMMENTS - FREE TEXT/NARRATIVE: Alert pleasant 83-year-old elderly gentleman presents with and female family member regarding hematuria. Patient has a history of known bladder cancer and had a bladder tumor resected on August 11 at [facility] by urology service. Patient was found to have bladder cancer he is unsure if it's the invasive cancer or not. The lesion was approximately 5 cm x 7 cm per patient and . Patient has been straight cathetering to ensure bladder emptying for the last 3 years. He straight catheter every morning and evening with the assistance of his . Patient states after his surgery and bladder cancer removal he's been doing well in her normal state of health. Wednesday morning he woke up and having difficulty with urination noted some dark brown discoloration to his urine with small dark clots which she was able to pass. Patient's complete straight cathetering morning and night and as stated that it's been more difficult to perform straight catheters after urologic procedure last month. Patient states his also had more discomfort with catheterization. Urine was then clear on . This morning he woke up and he was unable to urinate despite having significant urge to urinate. Patient was able to get a small amount of urine output and was bright red with blood and clots which were as long as a finger and fairly narrow. Patient denies any fever, chills or sweats he denies feeling acutely ill. Denies any new weakness or lightheadedness. Patient is noted he is slightly short of breath over the course of the last week. Patient states his president/[employer] live experiences just changed his blood pressure medication from 40 mg daily to 80 mg daily. They were concerned that the blood pressure medication may have caused his bladder bleeding as one of the very low likelihood side effects of hematuria. Patient did not take his Coreg this morning aft prescribed but to call his other medications including his aspirin. Onset: Sudden Onset Date: 08/31/18 - Related Data Allergies Allergy/AdvReac Type Severity Reaction Status Date / Time clopidogrel [From Plavix] Allergy Unknown Rash Verified 07/04/18 13:23 Home Meds: Home Meds Ascorbic Acid [Vitamin C] 1,000 mg PO BID 07/31/14 [History] Gluc 2KCl/Chondr/Shannan Hy/Hy Ac [Glucosamine & Chondroitin Cap] 2 each PO BID 08/10 [History] Multivitamin [Multi-Vitamin Daily] 1 each PO DAILY 07/31/14 [History] [place]-3 Fatty Acids [[place]-3] 1,000 mg PO BID 07/31/14 [History] Spironolactone [Aldactone] 25 mg PO DAILY 07/31/14 [History] Ubiquinol 100 mg PO DAILY 07/31/14 [History] Aspirin [Aspirin EC] 325 mg PO DAILY 07/04/18 [History] Coreg Sr 80 mg PO DAILY 07/04/18 [History] Finasteride 5 mg PO DAILY 07/04/18 [History] Polyethylene Glycol 3350 [MiraLAX] 17 gm PO DAILY 07/04/18 [History] Tamsulosin HCl 0.4 mg PO DAILY 07/04/18 [History] Tiotropium [Spiriva Handihaler] 18 mcg INH DAILY 07/04/18 [History] atorvaSTATin [Lipitor] 20 mg PO BEDTIME 07/04/18 [History] Chlorpheniramine Maleate 4 mg PO BID 07/05/18 [History] Glucosamine/D3/Boswellia Anastasiia [Osteo Bi-Flex Tablet] 2 tab PO BID 07/05/18 [ History] Past Medical History HEENT History: Reports: Impaired Vision Other HEENT History: Color Blind Cardiovascular History: Reports: Heart Failure, Heart Valve Replacement, Other ( See Below) Other Cardiovascular History: systolic dysfunction. 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, Bladder CA with tumor resection completed July 2018 at [facility] Musculoskeletal History: Reports: Other (See Below) Other Musculoskeletal History: spinal stenosis Oncologic (Cancer) History: Reports: Bladder Other Oncologic History: July 2018 - Infectious Disease History Infectious Disease History: Reports: Chicken Pox, Measles, Mumps - Past Surgical History HEENT Surgical History: Reports: None Cardiovascular Surgical History: Reports: Valve Replacement Respiratory Surgical History: Reports: None GI Surgical History: Reports: Colonoscopy Male Surgical History: Reports: Other (See Below) Other Male Surgeries/Procedures: straight cath x 3 Endocrine Surgical History: Reports: Parathyroidectomy Musculoskeletal Surgical History: Reports: Other (See Below) Other Musculoskeletal Surgeries/Procedures:: loosened up nerves in spine and removed some of back bone for spinal stenois Dermatological Surgical History: Reports: None Social & Family History - Family History Family Medical History: Noncontributory Cardiac: Reports: NC - Tobacco Use Smoking Status *Q: Never Smoker - Caffeine Use Caffeine Use: Reports: Coffee - Recreational Drug Use Recreational Drug Use: No ED ROS GENERAL - Review of Systems Review Of Systems: ROS reveals no pertinent complaints other than HPI. Respiratory: Reports: Shortness of Breath Cardiovascular: Reports: No Symptoms, Blood Pressure Problem, Dyspnea on Exertion, Palpitations (due to known PVCs). Denies: Chest Pain, Edema, Lightheadedness, Orthopnea, Syncope : Reports: Flank Pain (left, not necessary new, worse or different that typical ) ED EXAM, RENAL/ - Physical Exam Exam: See Below Exam Limited By: No Limitations General Appearance: Alert, WD/WN, No Apparent Distress, Thin (fraily and elderly in appearance) Eye Exam: Bilateral Eye: EOMI, Normal Inspection Ears: Normal External Exam, Hearing Loss Nose: Normal Inspection, No Blood Throat/Mouth: Normal Lips Head: Atraumatic Neck: Normal Inspection, Non-Tender, Full Range of Motion (per baseline), Limited Range of Motion (due to age no pain) Respiratory/Chest: No Respiratory Distress, Lungs Clear, Normal Breath Sounds, No Accessory Muscle Use, Chest Non-Tender Cardiovascular: Normal Peripheral Pulses, No Edema, Systolic Murmur. No: JVD, Tachycardia GI/Abdominal: Normal Bowel Sounds, Soft, Non-Tender, No Distention, No Mass. No : Distended, Guarding, Rigid, Rebound Rectal (Males) Exam: Deferred Back Exam: Normal Inspection, CVA Tenderness (L). No: CVA Tenderness (R) Extremities: Normal Inspection, Normal Range of Motion, No Pedal Edema, Normal Capillary Refill Neurological: Alert, Oriented, CN II-XII Intact, Normal Cognition, Normal Reflexes, No Motor/Sensory Deficits, Abnormal Gait (at baseline due to age) Psychiatric: Normal Affect, Normal Mood Skin Exam: Warm, Dry, Intact, Normal Color, No Rash Lymphatic: No Adenopathy EKG INTERPRETATION EKG Date: 09/02/18 Time: 12:55 Rhythm: Other (atrial sensed paced rhythm) [place]: Other (ventricular paced rhythm) P-Wave: Absent QRS: Other (ventricular paced rhythm) Comparison: Change From Previous EKG (January 2017: New pacemaker and improved SC interval) Course - Vital Signs Last Recorded V/S: Last Vital Signs Temp 36.1 C 09/02/18 11:11 Pulse 61 09/02/18 13:21 Resp 18 09/02/18 11:11 BP 175/83 H 09/02/18 13:21 Pulse Ox 96 09/02/18 13:21 - Orders/Labs/Meds Orders: Active Orders 24 hr Category Date Time Status Bladder Irrigation [RC] BID Care 09/02/18 11:39 Active Bladder Scan [RC] ASDIRECTED Care 09/02/18 11:39 Active EKG Documentation Completion [RC] ASDIRECTED Care 09/02/18 11:40 Active Park Catheter Insertion [Insert Urinary Catheter] [OM. Care 09/02/18 11:45 Ordered PC] Q24H Peripheral IV Care [RC] . DIRECTED Care 09/02/18 11:40 Active Urinary Catheter Assessment [RC] ASDIRECTED Care 09/02/18 11:42 Active Sodium Chloride 0.9% [Saline Flush] Med 09/02/18 11:39 Active 10 ml FLUSH ASDIRECTED PRN Peripheral IV Insertion Adult [OM.PC] Urgent Oth 09/02/18 11:39 Ordered EKG 12 Lead [EK] Urgent Ther 09/02/18 11:39 Ordered Medication Orders Sodium Chloride (Saline Flush) 10 ml FLUSH ASDIRECTED PRN PRN Reason: Keep Vein Open Labs: Laboratory Tests 09/02/18 09/02/18 09/02/18 Range/Units 11:57 11:57 11:57 WBC 4.7 (4.5-11.0) K/uL RBC 3.48 L (4.30-5.90) M/uL Hgb 10.7 L (12.0-15.0) g/dL Hct 32.3 L (40.0-54.0) % MCV 93 (80-98) fL MCH 31 (27-31) pg MCHC 33 (32-36) % Plt Count 188 (150-400) K/uL Neut % (Auto) 64 (36-66) % Lymph % (Auto) 17 L (24-44) % [place] % (Auto) 14 H (2-6) % Eos % (Auto) 4 (2-4) % Baso % (Auto) 1 (0-1) % PT 11.1 (9.5-12.0) sec INR 1.01 (0.80-1.20) APTT 28.1 (27.0-36.0) sec Sodium 134 L (140-148) mmol/L Potassium 4.6 (3.6-5.2) mmol/L Chloride 100 (100-108) mmol/L Carbon Dioxide 25 (21-32) mmol/L Anion Gap 13.6 (5.0-14.0) mmol/L BUN 42 H (7-18) mg/dL Creatinine 1.6 H (0.8-1.3) mg/dL Est Cr Clr Drug Dosing 35.49 mL/min Estimated GFR (MDRD) 41 L (>60) Glucose 100 (74-106) mg/dL Calcium 8.4 L (8.5-10.1) mg/dL Total Bilirubin 0.3 (0.2-1.0) mg/dL AST 23 (15-37) U/L ALT 21 (12-78) U/L Alkaline Phosphatase 63 (46-116) U/L Total Protein 6.5 (6.4-8.2) g/dL Albumin 3.2 L (3.4-5.0) g/dL Globulin 3.3 (2.3-3.5) g/dL Albumin/Globulin Ratio 1.0 L (1.2-2.2) Urine Color Urine Appearance Urine pH (4.5-8.0) Ur Specific [place] (1.008-1.030) Urine Protein (NEGATIVE) mg/dL Urine Glucose (UA) (NEGATIVE) mg/dL Urine Ketones (NEGATIVE) mg/dL Urine Occult Blood (NEGATIVE) Urine Nitrite (NEGAITVE) Urine Bilirubin (NEGATIVE) Urine Urobilinogen (NORMAL) mg/dL Ur Leukocyte Esterase (NEGATIVE) Urine RBC (0-5) Urine WBC (0-5) Ur Epithelial Cells Amorphous Sediment Urine Bacteria Urine Mucus 09/02/18 Range/Units 12:17 WBC (4.5-11.0) K/uL RBC (4.30-5.90) M/uL Hgb (12.0-15.0) g/dL Hct (40.0-54.0) % MCV (80-98) fL MCH (27-31) pg MCHC (32-36) % Plt Count (150-400) K/uL Neut % (Auto) (36-66) % Lymph % (Auto) (24-44) % [place] % (Auto) (2-6) % Eos % (Auto) (2-4) % Baso % (Auto) (0-1) % PT (9.5-12.0) sec INR (0.80-1.20) APTT (27.0-36.0) sec Sodium (140-148) mmol/L Potassium (3.6-5.2) mmol/L Chloride (100-108) mmol/L Carbon Dioxide (21-32) mmol/L Anion Gap (5.0-14.0) mmol/L BUN (7-18) mg/dL Creatinine (0.8-1.3) mg/dL Est Cr Clr Drug Dosing mL/min Estimated GFR (MDRD) (>60) Glucose (74-106) mg/dL Calcium (8.5-10.1) mg/dL Total Bilirubin (0.2-1.0) mg/dL AST (15-37) U/L ALT (12-78) U/L Alkaline Phosphatase (46-116) U/L Total Protein (6.4-8.2) g/dL Albumin (3.4-5.0) g/dL Globulin (2.3-3.5) g/dL Albumin/Globulin Ratio (1.2-2.2) Urine Color Red Urine Appearance Turbid Urine pH 6.5 (4.5-8.0) Ur Specific [place] 1.015 (1.008-1.030) Urine Protein 500 H (NEGATIVE) mg/dL Urine Glucose (UA) Normal (NEGATIVE) mg/dL Urine Ketones Negative (NEGATIVE) mg/dL Urine Occult Blood Large (NEGATIVE) Urine Nitrite Negative (NEGAITVE) Urine Bilirubin Negative (NEGATIVE) Urine Urobilinogen Normal (NORMAL) mg/dL Ur Leukocyte Esterase Small (NEGATIVE) Urine RBC Packed H (0-5) Urine WBC 5-10 H (0-5) Ur Epithelial Cells Not seen Amorphous Sediment Not seen Urine Bacteria Few Urine Mucus Not seen Meds: Medications Generic Name Dose Route Start Last Admin Trade Name Freq PRN Reason Stop Dose Admin Sodium Chloride 10 ml 09/02/18 11:39 Saline Flush FLUSH ASDIRECTED PRN Keep Vein Open Discontinued Medications Generic Name Dose Route Start Last Admin Trade Name Freq PRN Reason Stop Dose Admin Lidocaine HCl 10 ml 09/02/18 11:51 09/02/18 12:12 Xylocaine 2% Jelly MUCMEM 09/02/18 11:52 10 ml ONETIME ONE Administration - Radiology Interpretation Free Text/Narrative:: Spoke with facility maintenance technician regarding complete renal Ultrasound. Right kidney: No hydronephrosis. Normal blood flow noted. Renal cyst noted. No acute concerning findings. Left Kidney: No obviosu acute concerns but difficulty to assess due to overlying bowel gas. Bladder: Non distended. Park balloon and catheter in placed. No pulsatile bleeding or masses noted. - Re-Assessments/Exams Free Text/Narrative Re-Assessment/Exam: Repeat evaluation completed. Patient's symptoms are much improved. Bladder irrigation was completed after 1 hour. Urinalysis appears clear. Bladder patient was discontinued. Park bag was emptied will monitor patient for 1 hour to evaluate for continued hematuria. Bleeding seems to have resolved. Laboratory studies do not show any significant acute changes. Hemoglobin 10.7. Hematocrit is a little bit low which could indicate early blood loss anemia not to a concerning level. is concerned about transfer to [place] for evaluation with the urologist. She asked about staying here in the hospital or [facility]. Unfortunately [facility] does not have urologist available for inpatient care at this point in time. Urine now appearing to be clear patient will likely be discharged with Park catheter bag and follow-up with urology early next week for repeat evaluation. 09/02/18 13:49 Free Text/Narrative Re-Assessment/Exam: Small amount of blood noted in urine +3-4 on Hematuria grading scale. Shared decision making completed regarding risks and benefits of discharge home with Aprk catheter in place vs transfer to [place] at this point in time. I feel the patient is safe to be discharged home with close follow-up primary care provider or urologist early next week. Signs and symptoms and urinary findings that would warrant return to ER were discussed with and patient. They're in agreement with discharge plan at this point in time. 09/02/18 15:13 Departure - Departure Time of Disposition: 15:17 Disposition: Home, Self-Care 01 Condition: Fair Clinical Impression: Retention of urine, Acquired stenosis of urethral meatus, Bladder cancer Hematuria Qualifiers: Hematuria type: gross Qualified Code(s): R31.0 - Gross hematuria - Discharge Information Instructions: Hematuria, Adult, Acute Urinary Retention, Male, Indwelling Urinary Catheter Care, Adult Referrals: Rachid Macias MD [Primary Care Provider] - Forms: ED Department Discharge Additional Instructions: [place] 1. LEAVE PARK CATHETER IN PLACE UNTIL SEEN BY UROLOGY or PCP. 2. CALL PCP/UROLOGY CLINIC TODAY FOR APPOINTMENT AND FURTHER EVALUATION EARLY NEXT WEEK 3. TYLENOL (ACETAMINOPHEN) NEEDED FOR MILD PAIN. 4. CONTINUE CURRENT MEDICATIONS PRESCRIBED INCLUDING BLOOD PRESSURE MEDICATION. 5. RETURN TO ER IF URINE APPEARS TO LOOK LIKE BLOOD WITH CLOTTING, SYMPTOMS OF LIGHTHEADEDNESS, WEAKNESS, PALE AND UNWELL DUE TO AMOUNT OF BLEEDING OR PLUGGED PARK CATHETER OVER THE WEEKEND. 6 IF RETURN TO ER, REPEAT BLOOD TESTS AND BLADDER IRRIGATION WITH POSSIBLE TRANSFER TO [facility] FOR INPATIENT UROLOGY CARE. Hematuria (Blood in Urine) What is hematuria? Hematuria means blood in the urine. Microscopic hematuria means that the blood is seen only when the urine is examined under a microscope. Gross hematuria means that there is enough blood in the urine to be seen without a microscope. It causes the urine to look pink, red, or sometimes brown. Certain kinds of foods, such as beets or blackberries, may give the urine a reddish tint. This should last only for a day or so after eating these foods. A few medicines may also turn the urine reddish. If you have started a new medicine and notice a color change in your urine, call your pharmacist to see if that is normal. If the redness persists and cannot be explained by food or medicine, consult your healthcare provider promptly. How does it occur? Hematuria is a sign that something is causing bleeding in the urinary tract. The urinary tract includes the kidneys, the ureters (tubes that carry urine from the kidneys to the bladder), the bladder, and the urethra (tube that carries urine from the bladder out of the body). Some common causes of blood in the urine are: urinary tract (bladder) infection strenuous exercise kidney disease a stone in your bladder or kidney an inherited disease such as sickle cell anemia or systemic lupus erythematosus medicines such as blood thinners, including heparin (Calciparine, Liquaemin) , warfarin (Coumadin), or aspirin-type medicines; penicillins; sulfa-containing drugs; cyclophosphamide (Cytoxan) a prostate infection injury to any part of the urinary tract (for example, falling off a bike might bruise your kidney) a tumor in your urinary tract. How is it diagnosed? Urine that has blood in it may appear pink, bright red, or sometimes brown. If you have blood in your urine, your healthcare provider will ask about other symptoms and examine you. If the cause is obvious, your healthcare provider will treat you. If the cause isn't clear, you may need to have more tests such as: urine tests blood tests ultrasound scan of your bladder and kidneys intravenous pyelogram (an X-ray of the urinary tract) cystoscopy (a procedure that allows your provider to look at the urinary tract with a slim, flexible, lighted tube inserted through the urethra). How is it treated? The treatment of hematuria depends on its cause. How long do the effects last? How long hematuria lasts depends on its cause. For example, hematuria related to strenuous exercise usually goes away within 1 or 2 days after the exercise. Hematuria from a urinary tract infection will end when the infection is cured. Other causes might take longer to clear up. What can I do to help prevent hematuria? Prevention of hematuria depends on the cause. Ask your healthcare provider what you can do to prevent it. Indwelling Catheter Care What is an indwelling catheter? An indwelling urinary catheter is a tube that drains urine from the bladder into a bag. The tube is placed into the urethra (the part of the body that drains the bladder) and up into the bladder. The most common indwelling catheter is called a Park catheter. It is a tube with a balloon on one end and a drainage outlet on the other. The balloon end is inserted into the bladder and the balloon is inflated with sterile water to keep the catheter in the bladder. An indwelling catheter is used when you can't urinate normally. This may happen with some medical conditions such as prostate enlargement or after surgery on the pelvis or urinary tract. In these cases catheters are usually needed for only a few days or weeks, depending on your situation. Another reason you might need a catheter is incontinence, which means you can't control your urine. If contact with uncontrolled urine has caused breakdown in the skin, use of a catheter can help prevent more irritation or injury. How do I care for am indwelling catheter? When you have an indwelling catheter, you or someone caring for you needs to: Make sure urine is flowing into the catheter. Check for signs of skin irritation or infection. Make sure that the urine collection bag is always below the level of the bladder. The steps for good catheter care are: 1. Check the tubing to make sure it is in good condition and does not have any kinks. 2. Make sure the bag is being kept below the level of the bladder whether you are sitting, lying, or walking. This will help prevent infection. After urine passes through the catheter into the collection bag, it can become infected. The bag must be lower than the bladder so the urine can't flow back into the bladder and infect the urinary tract. 3. If the bag is attached to the thigh, check that the straps are not too tight or irritating. 4. Inspect the area where the catheter goes into the body (the urethra) to look for redness, raw areas, swelling, cracks in the skin, or drainage. 5. Gently clean all around the area where the catheter enters the body. Also clean the top several inches of the catheter. Use the antibacterial soap or solution recommended by your healthcare provider. 6. If you notice any of the following problems, report them to the healthcare provider according to the instructions you were given: Too little urine is being collected. Normally adults make 1 to 2 quarts (or liters) of clear, yellow urine each day. The catheter does not seem to be working right. You see signs of irritation or infection of the skin. Urine is leaking around the catheter or the catheter is accidentally pulled out. If the amount of urine draining into the bag is less than normal, there are several possible reasons, including: You are drinking less fluid. Your drainage system is blocked. You are not correctly measuring the amount of urine collected in the bag. Your kidneys are not functioning properly. What are the complications of indwelling catheters? The area where the catheter enters the body may become irritated and raw. It may become infected. In women the tube enters the urethra near the opening of the vagina. The opening of the urethra and the skin around the vagina can become red and raw from the rubbing of the tube. In men the end of the penis can become red, swollen, and sore from the catheter. If a man is uncircumcised, the foreskin can become irritated. Indwelling catheters can cause urinary tract infections. If you have a catheter and you develop 2 or more of the following symptoms, you should see your healthcare provider because you may have a urinary tract infection: fever shaking chills sweats lower abdominal pain back pain pain around the urethra cloudy, bad-smelling urine. Catheters may injure the urethra. For example, the urethra could be injured from tugging on the catheter tubing or bag. You may see a very small amount of blood making the urine look red or pink in the catheter if there has been a slight injury to the urethra. If this goes away quickly and there are no other symptoms, it is usually safe just to watch to make sure it doesn't happen again. However, if there continues to be blood in the urine inside the tubing for an hour or more, contact your healthcare provider. These instructions are intended to support the instructions from your healthcare provider and should not be used in place of those instructions. Developed by [facility] - My Orders Last 24 Hours: My Active Orders 09/02/18 11:39 Bladder Irrigation [RC] BID Bladder Scan [RC] ASDIRECTED Sodium Chloride 0.9% [Saline Flush] 10 ml FLUSH ASDIRECTED PRN Peripheral IV Insertion Adult [OM.PC] Urgent EKG 12 Lead [EK] Urgent 09/02/18 11:40 EKG Documentation Completion [RC] ASDIRECTED Peripheral IV Care [RC] . DIRECTED 09/02/18 11:42 Urinary Catheter Assessment [RC] ASDIRECTED 09/02/18 11:45 Park Catheter Insertion [Insert Urinary Catheter] [OM.PC] Q24H - Assessment/Plan Last 24 Hours: My Active Orders 09/02/18 11:39 Bladder Irrigation [RC] BID Bladder Scan [RC] ASDIRECTED Sodium Chloride 0.9% [Saline Flush] 10 ml FLUSH ASDIRECTED PRN Peripheral IV Insertion Adult [OM.PC] Urgent EKG 12 Lead [EK] Urgent 09/02/18 11:40 EKG Documentation Completion [RC] ASDIRECTED Peripheral IV Care [RC] . DIRECTED 09/02/18 11:42 Urinary Catheter Assessment [RC] ASDIRECTED 09/02/18 11:45 Park Catheter Insertion [Insert Urinary Catheter] [OM.PC] Q24H Plan: HEMATURIA PARK 1. LEAVE PARK CATHETER IN PLACE UNTIL SEEN BY UROLOGY or PCP. 2. CALL PCP/UROLOGY CLINIC TODAY FOR APPOINTMENT AND FURTHER EVALUATION [place] NEXT WEEK 3. TYLENOL (ACETAMINOPHEN) NEEDED FOR MILD PAIN. 4. CONTINUE CURRENT MEDICATIONS PRESCRIBED INCLUDING BLOOD PRESSURE MEDICATION. 5. RETURN TO ER IF URINE APPEARS TO LOOK LIKE BLOOD WITH CLOTTING, SYMPTOMS OF LIGHTHEADEDNESS, WEAKNESS, PALE AND UNWELL DUE TO AMOUNT OF BLEEDING OR PLUGGED PARK CATHETER OVER THE WEEKEND. 6 IF RETURN TO ER, REPEAT BLOOD TESTS AND BLADDER IRRIGATION WITH POSSIBLE TRANSFER TO [facility] FOR INPATIENT UROLOGY CARE.
[2018-09-02 13:27] VITALS: BP 175/83
--- NOTE | 2018-09-02 13:36 | CRLUS ---
INDICATION: Left flank pain and hematuria. Bladder cancer. TECHNIQUE: Ultrasound renal and bladder complete. Ashraf-scale and color Doppler sonographic images were acquired of the kidneys and urinary bladder. COMPARISON: None FINDINGS: Right kidney: 10 x 6 x 5 cm. Left kidney: Not visualized. Right kidney demonstrates a normal echotexture and cortex. No suspicious masses, stones, or hydronephrosis. Few benign-appearing cysts are present. Bladder: Catheterized and decompressed. IMPRESSION: Unremarkable right kidney. Left kidney was not visualized. CT evaluation should be considered to further evaluate the left kidney given the patient`s left flank pain and hematuria. Urinary bladder is catheterized and decompressed. Dictated by Arie Orellana MD @ 09/02/2018 1:33:20 PM Dictated by: Arie Orellana MD @ 09/02/2018 13:33:27 (Electronically Signed)
== END 2018-09-02 15:44 | disposition home or self-care (01) ==
LOC: JP.ED 10:37
DX: C67.9 Malignant neoplasm of bladder, unspecified (principal); I50.9 Heart failure, unspecified; J44.9 Chronic obstructive pulmonary disease, unspecified; N18.3 Chronic kidney disease, stage 3 (moderate); Z79.899 Other long term (current) drug therapy; Z95.5 Presence of coronary angioplasty implant and graft; Z88.8 Allergy status to other drugs, medicaments and biological substances; Z79.82 Long term (current) use of aspirin
CPT/HCPCS: 36415; 51700; 51702; 76770; 80053; 81001; 85025; 85610; 85730; 93005; 99283-25; 99284